=== PATIENT | male | born 1965 | race African-American/Black ===

== ENCOUNTER 2016-11-11 17:55 | Emergency (ER) | payer MEDICAID ==
[~2016-11-11] VITALS: Ht 188 cm; Wt 168.0 kg
[~2016-11-11 17:55] MED LIST: ASPI-1035 PO; CARV25TA47 PO; D-ME118S13 PO; FURO-151 PO; HYDR-4134 PO; HYDR-523 PO; ISOS5TAB4 PO; RIVA10TA PO; SPIR25TA PO
[2016-11-11] MEDS ORDERED: HYDROCODONE/ACETAMINOPHEN 5/325MG TABLET PO ONE (20:15)
[2016-11-11 21:15] VITALS: BP 143/49
== END 2016-11-12 05:38 | disposition home or self-care (01) ==
LOC: ER 17:56
DX: Z45.018 Encounter for adjustment and management of other part of cardiac pacemaker (principal); I10 Essential (primary) hypertension; I25.10 Atherosclerotic heart disease of native coronary artery without angina pectoris; E66.01 Morbid (severe) obesity due to excess calories; Z68.42 Body mass index [BMI] 45.0-49.9, adult; Z95.5 Presence of coronary angioplasty implant and graft; Z86.718 Personal history of other venous thrombosis and embolism; Z79.01 Long term (current) use of anticoagulants; Z79.899 Other long term (current) drug therapy; Z79.82 Long term (current) use of aspirin
CPT/HCPCS: 99284; Z7610